=== PATIENT | female | born 1960 | race American Indian/Alaskan Native ===

== ENCOUNTER 2019-07-12 11:08 | Outpatient (CLI) | payer MEDICAID ==
--- NOTE | 2019-07-12 12:39 | XRay Report ---
LUMBOSACRAL SPINE, 5 VIEWS INDICATION: LOW BACK PAIN. COMPARISON: None. IMPRESSION: Normal bone mineralization. Normal alignment on the lateral images. No evidence for com pression deformity, subluxation or bone lesion. Mild to moderate discogenic disc disease is identifi ed at L4-5 and L5-S1. There is mild diffuse facet arthropathy which is most pronounced at L4-5 and L5 -S1. The oblique images are limited but no pars defect or high-grade neural foraminal narrowing is ap preciated. Signer Name: Bartolo Poole Jr, MD Signed: 07/12/2019 12:34 PM Workstation Name: [id number]
== END 2019-07-12 11:09 | disposition home or self-care (01) ==
LOC: XRAY 11:08
PROVIDERS: ATTEND Orthopaedic Surgery
DX: M51.86 Other intervertebral disc disorders, lumbar region (principal); I25.10 Atherosclerotic heart disease of native coronary artery without angina pectoris; I10 Essential (primary) hypertension; K21.9 Gastro-esophageal reflux disease without esophagitis; Z90.89 Acquired absence of other organs; Z90.49 Acquired absence of other specified parts of digestive tract; Z90.710 Acquired absence of both cervix and uterus; M06.9 Rheumatoid arthritis, unspecified; E11.9 Type 2 diabetes mellitus without complications; F17.210 Nicotine dependence, cigarettes, uncomplicated; M10.9 Gout, unspecified
CPT/HCPCS: 72110